=== PATIENT | male | born 2000 | race Caucasian/White ===

== ENCOUNTER 2020-01-21 00:17 | Emergency (ER) | payer OTHER ==
[~2020-01-21] VITALS: Ht 167.6 cm; Wt 94.0 kg
[2020-01-21 00:35] VITALS: BP 135/94
[2020-01-21] MEDS ORDERED: IBUPROFEN 600MG TABLET PO ONE (01:00)
== END 2020-01-21 03:59 | disposition home or self-care (01) ==
LOC: ER 00:17
DX: R07.89 Other chest pain (principal); J02.9 Acute pharyngitis, unspecified; J45.909 Unspecified asthma, uncomplicated
CPT/HCPCS: 71045; 82962; 87070; 87430; 93005; 99285